=== PATIENT | female | born 1965 | race Caucasian/White ===

== ENCOUNTER 2016-10-05 08:10 | Inpatient (IN) | payer MEDICAID ==
[~2016-10-05] VITALS: Ht 157.5 cm; Wt 95.3 kg
--- NOTE | 2016-10-05 08:39 | PHYS DOC ---
Past Medical History Additional Past Medical Histor: back lower back pain, Past Surgical History: Tonsillectomy, Tubal ligation, Other Additional Past Surgical Histo: uterine ablation, thyroidectomy Drug Use: None Adult General Chief Complaint Chief Complaint: LOWER BACK PAIN OR INJURY [facility] HPI He is a pleasant 51-year-old female with history of chronic neck pain secondary to chronic bulging disc and C6-C7 and chronic lower back pain that acutely worse over the last 24 hours. 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 She is at a truck stop earlier today when attempting to get out of the truck to go the restroom and felt increasing pain in her lower back. She has no numbness and tingling to her groin has had some urinary incontinence is gotten progressively worse over last several weeks. She denies any weakness in her legs, bowel incontinence, fevers, chills, UTI symptoms, vaginal bleeding or discharge, night sweats, weight loss, fevers or chills, vomiting, diarrhea or other symptoms. She said normally she is takes Aleve for her symptoms but since she is in so much pain even taking Aleve has not relieved her symptoms. She denies any fall or remembers any specific movement that may be exacerbated her symptoms. She unfortunately is here by herself traveling to the state and has no one that can take her home. Review of Systems Review of Systems Constitutional: Denies fever or chills [] Eyes: Denies change in visual acuity, redness, or eye pain [] HENT: Denies nasal congestion or sore throat [] Respiratory: Denies cough or shortness of breath [] Cardiovascular: No additional information not addressed in HPI [] GI: Denies abdominal pain, nausea, vomiting, bloody stools or diarrhea [] : Denies dysuria or hematuria he does complain of some urinary incontinence. Musculoskeletal: Planes of chronic neck pain and back pain. Integument: Denies rash or skin lesions [] Neurologic: Denies headache, focal weakness or sensory changes [] Endocrine: Denies polyuria or polydipsia [] Current Medications Current Medications Current Medications Medications (Trade) Dose Ordered Sig/Hilton Start Time Stop Time Status Last Admin Dose Admin Acetaminophen (Tylenol) 650 mg PRN Q4HRS PRN 10/05/16 11:30 10/06/16 11:29 Diazepam (Valium) 5 mg 1X ONCE 10/05/16 09:00 10/05/16 09:01 DC 10/05/16 08:50 5 MG Hydromorphone HCl (Dilaudid) 1 mg PRN Q15MIN PRN 10/05/16 08:30 10/06/16 08:29 10/05/16 11:30 1 MG Ketorolac Tromethamine (Toradol) 30 mg 1X ONCE 10/05/16 09:00 10/05/16 09:01 DC 10/05/16 08:49 30 MG Morphine Sulfate 4 mg PRN Q2HR PRN 10/05/16 11:30 10/06/16 11:29 Ondansetron HCl (Zofran) 4 mg PRN Q8HRS PRN 10/05/16 11:30 10/06/16 11:29 Sodium Chloride 1,000 ml @ 125 mls/hr Q8H 10/05/16 11:18 10/06/16 11:17 Sodium Chloride (Normal Saline Flush) 10 ml QSHIFT PRN 10/05/16 08:30 10/05/16 08:52 10 ML Allergies Allergies Allergies Coded Allergies Type Severity Reaction Last Updated Verified Cephalosporins Allergy Intermediate hives 10/05/16 Yes bee venom protein (honey bee) Allergy Unknown swelling 10/05/16 Yes egg Allergy Unknown hives 10/05/16 Yes Physical Exam Physical Exam Constitutional: Well developed, well nourished, is crying and very uncomfortable. Resting with her legs at 30 HENT: Normocephalic, atraumatic, bilateral external ears normal, oropharynx moist, no oral exudates, nose normal. [] Eyes: PERRLA, EOMI, conjunctiva normal, no discharge. [] Neck: Normal range of motion, no tenderness, supple, no stridor. [] Cardiovascular:Heart rate regular rhythm, no murmur [] Lungs & Thorax: Bilateral breath sounds clear to auscultation [] Abdomen: Bowel sounds normal, soft, no tenderness, no masses, no pulsatile masses. [] Skin: Warm, dry, no erythema, no rash. [] Back: Exhibits significant tenderness lumbar spine. Extremities: No tenderness, no cyanosis, no clubbing, ROM intact, no edema. [] Neurologic: Alert and oriented X 3, normal motor function, normal sensory function, no focal deficits noted. Patient has negative straight leg raise at 40 each leg bilaterally. Patient has normal sensation to light touch and appropriate production stage manager over the lower dermatomes of the legs. Psychologic: Very anxious but judgment is normal Current Patient Data Vital Signs Vital Signs Date Time Temp Pulse Resp B/P (MAP) Pulse Ox O2 Delivery O2 Flow Rate FiO2 10/05/16 11:30 15 97 Room Air 10/05/16 08:10 97.9 77 132/68 (89) 97.9 Lab Values Laboratory Tests Test 10/05/16 08:37 10/05/16 09:50 White Blood Count 9.3 x10^3/uL (4.0-11.0) Red Blood Count 4.60 x10^6/uL (3.50-5.40) Hemoglobin 13.4 g/dL (12.0-15.5) Hematocrit 40.3 % (36.0-47.0) Mean Corpuscular Volume 88 fL (79-100) Mean Corpuscular Hemoglobin 29 pg (25-35) Mean Corpuscular Hemoglobin Concent 33 g/dL (31-37) Red Cell Distribution Width 14.2 % (11.5-14.5) Platelet Count 325 x10^3/uL (140-400) Neutrophils (%) (Auto) 45 % (31-73) Lymphocytes (%) (Auto) 45 % (24-48) Monocytes (%) (Auto) 5 % (0-9) Eosinophils (%) (Auto) 5 % (0-3) H Basophils (%) (Auto) 1 % (0-3) Neutrophils # (Auto) 4.1 x10^3uL (1.8-7.7) Lymphocytes # (Auto) 4.2 x10^3/uL (1.0-4.8) Monocytes # (Auto) 0.4 x10^3/uL (0.0-1.1) Eosinophils # (Auto) 0.4 x10^3/uL (0.0-0.7) Basophils # (Auto) 0.1 x10^3/uL (0.0-0.2) Sodium Level 145 mmol/L (136-145) Potassium Level 4.4 mmol/L (3.5-5.1) Chloride Level 107 mmol/L (98-107) Carbon Dioxide Level 26 mmol/L (21-32) Anion Gap 12 (6-14) Blood Urea Nitrogen 12 mg/dL (7-20) Creatinine 0.9 mg/dL (0.6-1.0) Estimated GFR (Cockcroft-Gault) 65.5 Glucose Level 104 mg/dL (70-99) H Calcium Level 8.8 mg/dL (8.5-10.1) Total Bilirubin 0.4 mg/dL (0.2-1.0) Direct Bilirubin 0.1 mg/dL (0.0-0.2) Aspartate Amino Transferase (AST) 51 U/L (15-37) H Alanine Aminotransferase (ALT) 102 U/L (14-59) H Alkaline Phosphatase 83 U/L (46-116) Total Protein 7.3 g/dL (6.4-8.2) Albumin 3.7 g/dL (3.4-5.0) Urine Collection Type Unknown Urine Color Yellow Urine Clarity Clear Urine pH 6.0 Urine Specific [place] 1.020 Urine Protein Negative mg/dL (NEG-TRACE) Urine Glucose (UA) Negative mg/dL (NEG) Urine Ketones (Stick) Negative mg/dL (NEG) Urine Blood Negative (NEG) Urine Nitrite Negative (NEG) Urine Bilirubin Negative (NEG) Urine Urobilinogen Dipstick 0.2 mg/dL (0.2 mg/dL) Urine Leukocyte Esterase Negative (NEG) Urine RBC Rare /HPF (0-2) Urine WBC Occ /HPF (0-4) Urine Squamous Epithelial Cells Few /LPF Urine Bacteria Few /HPF (0-FEW) Urine Mucus Slight /LPF Laboratory Tests 10/05/16 08:37 Laboratory Tests 10/05/16 08:37 EKG EKG [] Radiology/Procedures Radiology/Procedures [] [facility] [address] [place], [place] [id number] IMAGING REPORT Signed PATIENT: ZARINA SORIANO ACCOUNT: [id number] : 1965 LOCATION: ER AGE: 51 SEX: F EXAM STATUS: PRE ER ORD. PHYSICIAN: KRISTA SAMUELS MD REASON: lower back pain with urinary incontinence PROCEDURE: LUMBAR SPINE WO CONTRAST INDICATION: Low back pain and urinary incontinence. TECHNIQUE: Sagittal T1, sagittal T2, sagittal STIR, axial T1, and axial T2 sequences are provided. No comparison is available. FINDINGS: There is no malalignment. There is no marrow edema. There is no worrisome marrow lesion. Vertebral body height is maintained. There is diffuse disc desiccation. Disc height is relatively maintained. A few small Schmorl's nodes are noted. The conus medullaris is normal in signal intensity and in position. Subcutaneous edema is noted. The numbering system assumes 5 lumbar type vertebral bodies. Findings by individual level are as follows: L1-L2: There is a minimal disc bulge without canal or foraminal compromise. L2-L3: There is a minimal disc bulge without canal or foraminal compromise. L3-L4: There is a minimal disc bulge without canal or foraminal compromise. L4-L5: There is a mild disc bulge. There is a central annular fissure. There is facet hypertrophy. There is no canal or foraminal compromise. L5-S1: There is minimal facet hypertrophy without canal or foraminal compromise. What is considered the S1 segment may be partially lumbarized. IMPRESSION: Mild degenerative disc disease in the lumbar spine. There is no high-grade canal or foraminal compromise at any level. Electronically signed by: Rhys Campuzano MD (10/05/2016 10:00 AM) [facility] Course & Med Decision Making Course & Med Decision Making Pertinent Labs and Imaging studies reviewed. (See chart for details) Given the fact that this patient is traveling to the [facility] and her pain is so intractable. I will offer her IV medications for therapy I will complete a evaluation for differential diagnosis to include cauda equina, renal colic from kidney stones, UTI, pyonephritis, a fracture, a tumor, or toxins or possible infection from epidural abscess. She'll be given some fluids antiemetics and pain medications. We will complete a noncontrasted MRI of the lumbar spine. Even her urinary incontinence. Although I do not believe she suffered cauda equina given the fact she has normal sensation and rectal tone and no weakness demonstrated on exam. This urinary incontinence may be from stress incontinence. [] Patient tells me that their symptoms given during CC are improved. Actually 9: 30 AM Impression's MRI of the lumbar spine as been returned with no obvious impingement on the spinal canal. Patient has mild disc bulges but no impingement that would be be causing her to experience cauda equina. Patient's urinalysis is very contaminated with epithelial cells although she did express any dysuria urgency or frequency there is somewhat blood cells bacteria in the but given her epithelial contamination I will not treat this empirically. At this point patient is no fracture, no UTI, no pyonephritis, no epidural abscess , no evidence of cauda equina, and no ruptured aneurysm. Patient tells me that their symptoms given during CC are improved. 11:30 AM. Although the patient's MRI is negative patient is still having intractable pain. 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 We will have pain management see her as well we have her here in her hospital. Dr. DAVIS Quality Control Inspector Heading note: Internal medicine Quality Control Inspector Heading called at of the service paged at 11:31 AM Consult called back at 1:31 AM Discussed the case I presented and they agreed with admission. Time of acceptance 11:31 AM Patient is being admitted to the hospital secondary to intractable pain of her back. Although there is no evidence of organic problem like a localized infection, epidural abscess, cauda equina syndrome, UTI, pyelonephritis patient is traveling from out of state and cannot be released from the ER based on the fact that she still intractable pain requiring narcotics to treat. Patient had discussed treatment modalities and treatment options she is asked to be admitted to the hospital until she make arrangements for transportation back home. I spent approximately 45-50 minutes working and engaged directly in the patient care providing critical care evaluation this includes but not limited to time spent engaged in work directly related to the individual patients care. I spent time at the bedside, reviewing test results, discussing the case with staff, documenting the medical record and time spent with EMS discussing specific treatment issues when the patient presented and during his evaluation. Dragon Disclaimer Dragon Disclaimer This electronic medical record was generated, in whole or in part, using a voice recognition dictation system. Departure Departure Impression: Primary Impression: Intractable back pain Disposition: ADMITTED INPATIENT Admitting Physician: Other Condition: STABLE KRISTA SAMUELS MD Oct 05, 2016 08:38
[2016-10-05 08:46] LABS: BASO # 0.1 x10^3/uL (0.0-0.2); BASO % 1 % (0-3); EOS % 5 % (0-3); HEMATOCRIT 40.3 % (36.0-47.0); HEMOGLOBIN 13.4 g/dL (12.0-15.5); LYMPH # 4.2 x10^3/uL (1.0-4.8); LYMPH % 45 % (24-48); MEAN CORPUSCULAR HEMOGLOBIN 29 pg (25-35); MEAN CORPUSCULAR HGB CONC 33 g/dL (31-37); MEAN CORPUSCULAR VOLUME 88 fL (79-100); MONO % 5 % (0-9); NEUT % 45 % (31-73); PLATELET COUNT 325 x10^3/uL (140-400); RED CELL DISTRIBUTION WIDTH 14.2 % (11.5-14.5); WHITE BLOOD COUNT 9.3 x10^3/uL (4.0-11.0)
[2016-10-05] MEDS: 0.9 % SODIUM CHLORIDE 10 ML DISP.SYRIN. IV PRN ×2 (08:52→13:19)
[2016-10-05 08:55] LABS: CALCIUM 8.8 mg/dL (8.5-10.1); CREATININE 0.9 mg/dL (0.6-1.0); GFR 65.5; POTASSIUM 4.4 mmol/L (3.5-5.1)
[2016-10-05] MEDS ORDERED: IV NORMAL SALINE 1000ML BAG 1,000 ML IV SCH (09:00)
[2016-10-05] MEDS ORDERED: KETOROLAC TROMETHAMINE 30 MG/ML INJ. IV ONE (09:00)
[2016-10-05 09:01] LABS: ALBUMIN 3.7 g/dL (3.4-5.0); DIRECT BILIRUBIN 0.1 mg/dL (0.0-0.2); TOTAL BILIRUBIN 0.4 mg/dL (0.2-1.0); TOTAL PROTEIN 7.3 g/dL (6.4-8.2)
[2016-10-05] MEDS: HYDROmorphone 2 MG/ML VIAL IV/SQ PRN ×2 (09:43→11:30)
[2016-10-05 10:00] LABS: BILIRUBIN,URINE NEGATIVE (NEG); GLUCOSE,URINE NEGATIVE (NEG); NITRITE,URINE NEGATIVE (NEG); PROTEIN,URINE NEGATIVE (NEG-TRACE); UROBILINOGEN,URINE 0.2 mg/dL (0.2 mg/dL)
--- NOTE | 2016-10-05 10:03 | RAD ---
INDICATION: Low back pain and urinary incontinence. TECHNIQUE: Sagittal T1, sagittal T2, sagittal STIR, axial T1, and axial T2 sequences are provided. No comparison is available. FINDINGS: There is no malalignment. There is no marrow edema. There is no worrisome marrow lesion. Vertebral body height is maintained. There is diffuse disc desiccation. Disc height is relatively maintained. A few small Schmorl's nodes are noted. The conus medullaris is normal in signal intensity and in position. Subcutaneous edema is noted. The numbering system assumes 5 lumbar type vertebral bodies. Findings by individual level are as follows: L1-L2: There is a minimal disc bulge without canal or foraminal compromise. L2-L3: There is a minimal disc bulge without canal or foraminal compromise. L3-L4: There is a minimal disc bulge without canal or foraminal compromise. L4-L5: There is a mild disc bulge. There is a central annular fissure. There is facet hypertrophy. There is no canal or foraminal compromise. L5-S1: There is minimal facet hypertrophy without canal or foraminal compromise. What is considered the S1 segment may be partially lumbarized. IMPRESSION: Mild degenerative disc disease in the lumbar spine. There is no high-grade canal or foraminal compromise at any level. Electronically signed by: Rhys Campuzano MD (10/05/2016 10:00 AM) [facility]
[2016-10-05 10:14] LABS: BACTERIA,URINE FEW /HPF (0-FEW); RBC,URINE RARE /HPF (0-2); SQUAMOUS EPITHELIAL CELL,UR FEW /LPF; WBC,URINE OCC /HPF (0-4)
[2016-10-05] MEDS: IV NORMAL SALINE 1000ML BAG 1,000 ML IV SCH ×2 (11:18→21:03)
[2016-10-05] MEDS ORDERED: MORPHINE SULFATE 4 MG/ML DISP.SYRIN. IV PRN (11:30)
[2016-10-05] MEDS ORDERED: ACETAMINOPHEN 325 MG TABLET. PO PRN (11:30)
[2016-10-05] MEDS ORDERED: ONDANSETRON PF 4 MG/2 ML VIAL. IV PRN (11:30)
[2016-10-05 12:40] VITALS: BP 111/69
[2016-10-05] MEDS ORDERED: LEVO100T5 PO (12:41)
[2016-10-05] MEDS ORDERED: CHOL500050 PO (12:41)
[2016-10-05] MEDS ORDERED: LISI10TA2 PO (12:41)
[2016-10-05] MEDS ORDERED: OMEG100021 PO (12:41)
[2016-10-05 15:00] VITALS: BP 122/72
[2016-10-05] MEDS ORDERED: BUTALB/APAP/CAFEIN 50/325/40MG TABLET. PO PRN (17:00)
[2016-10-05] MEDS: methylPREDNISolone 4 MG TABLET. PO SCH ×5 (17:22→21:00)
[2016-10-05] MEDS: PANTOPRAZOLE 40 MG TABLET.DR. PO SCH (17:23)
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
[2016-10-05 19:28] VITALS: BP 112/71
[2016-10-05 23:22] VITALS: BP 109/62
--- NOTE | 2016-10-06 00:06 | ACF ---
Admission Forms Criteria BACK PAIN Clinical Indications for Admission to Inpatient Care ([place]/check or initial the applicable condition/ criteria) Admission is indicated for ANY ONE of the following(1)(2)(3)(4)(5)(6)(7): [ ]I. Cauda equina or conus medullaris syndrome as indicated by ANY ONE of the following(10): [ ]a) Bowel dysfunction [ ]b) Bladder dysfunction [ ]c) Saddle anesthesia [ ]d) Neurologic abnormality suggesting distal spinal cord impingement [ ]II. Progressive or severe neurologic deficit [ ]III. Spine fracture with significant damage or threat of damage to vertebral column or spinal cord [ ]IV. Suspected spinal infection (eg, epidural abscess, vertebral osteomyelitis)(11) [ ]V. Suspected cause that requires inpatient treatment (eg, aortic dissection ) [X]. Inpatient admission required[A] rather than observation care (see Back Pain: Observation Care ISC guideline as appropriate) because of ANYONE of the following(13): [X]a) Severe pain requiring acute inpatient management [ ]b) Immediate inpatient surgery [ ]c) Other condition, treatment, or monitoring requiring inpatient admission Extended stay beyond goal length of stay may be needed for (40)(41): [ ]a) Spinal cord compression from stenosis, disk, or tumor (10)(42) [ ]b) Traumatic or pathologic vertebral fracture (44) [ ]c) Vertebral infection (11) [ ]d) Severe pain that is difficult to control [ ]e) Older patients(65 years or older) [ ]f) Disk disease, spondylosis, or spinal stenosis as etiology of severe pain or functional deficit (without myelopathy) The original [employer] content created by [employer] has been revised. The portions of the content which have been revised are identified through the use of italic text, and [facility] has neither reviewed nor approved the modified material. All other unmodified content is copyright [employer]. Please see references footnoted in the original [facility] [facility] [employer] edition 2015 Admission Criteria Met?: Yes ANA AYON Oct 06, 2016 00:06
[2016-10-06] MEDS: HYDROcodone/APAP 10/325 1 TAB TABLET PO PRN ×3 (02:50→17:17)
[2016-10-06 03:05] VITALS: BP 132/66
[2016-10-06] MEDS: IV NORMAL SALINE 1000ML BAG 1,000 ML IV SCH (05:03)
[2016-10-06 06:26] LABS: ALBUMIN 2.9 g/dL (3.4-5.0); DIRECT BILIRUBIN 0.1 mg/dL (0.0-0.2); TOTAL BILIRUBIN 0.3 mg/dL (0.2-1.0); TOTAL PROTEIN 6.6 g/dL (6.4-8.2)
[2016-10-06 07:00] VITALS: BP 113/71
[2016-10-06] MEDS: LEVOTHYROXINE 100 MCG TABLET PO SCH (07:13)
[2016-10-06] MEDS: PANTOPRAZOLE 40 MG TABLET.DR. PO SCH (09:35)
[2016-10-06] MEDS: LISINOPRIL 10 MG TABLET PO SCH (09:35)
--- NOTE | 2016-10-06 10:55 | PDOC ---
PROGRESS NOTES Subjective Subjective She admits continued low back pain and feels there is something pinching in her back. Objective Objective Vital Signs Date Time Temp Pulse Resp B/P (MAP) Pulse Ox O2 Delivery O2 Flow Rate FiO2 10/06/16 09:38 20 95 Room Air 10/06/16 09:35 64 113/71 10/06/16 07:00 97.3 97.3 Intake and Output 10/06/16 07:00 Intake Total 5095 ml Output Total 400 ml Balance 4695 ml Intake Oral 1720 ml IV Total 1875 ml Other 1500 ml Output Urine Total 400 ml # Voids 6 Physical Exam Physical Exam Despite pain she got up and took shower and she is independent with her mobility and self care.No change noted with her neurological examination and despite no mri scan evidence of new HNP,we are treating just like she had new disc herniation with medrol dose pack. Assessment Assessment Problems Medical Problems: (1) Intractable back pain Status: Acute Plan Plan of Care Physical therapy to see her today and to encourage her to use lumbar corset while up and hopefully she should feel better to go home in the next few days. Comment Review of Relevant I have reviewed the following items estefani (where applicable) has been applied. Labs Laboratory Tests Test 10/05/16 08:37 10/05/16 09:50 10/06/16 05:40 White Blood Count 9.3 x10^3/uL (4.0-11.0) Red Blood Count 4.60 x10^6/uL (3.50-5.40) Hemoglobin 13.4 g/dL (12.0-15.5) Hematocrit 40.3 % (36.0-47.0) Mean Corpuscular Volume 88 fL (79-100) Mean Corpuscular Hemoglobin 29 pg (25-35) Mean Corpuscular Hemoglobin Concent 33 g/dL (31-37) Red Cell Distribution Width 14.2 % (11.5-14.5) Platelet Count 325 x10^3/uL (140-400) Neutrophils (%) (Auto) 45 % (31-73) Lymphocytes (%) (Auto) 45 % (24-48) Monocytes (%) (Auto) 5 % (0-9) Eosinophils (%) (Auto) 5 % (0-3) Basophils (%) (Auto) 1 % (0-3) Neutrophils # (Auto) 4.1 x10^3uL (1.8-7.7) Lymphocytes # (Auto) 4.2 x10^3/uL (1.0-4.8) Monocytes # (Auto) 0.4 x10^3/uL (0.0-1.1) Eosinophils # (Auto) 0.4 x10^3/uL (0.0-0.7) Basophils # (Auto) 0.1 x10^3/uL (0.0-0.2) Sodium Level 145 mmol/L (136-145) Potassium Level 4.4 mmol/L (3.5-5.1) Chloride Level 107 mmol/L (98-107) Carbon Dioxide Level 26 mmol/L (21-32) Anion Gap 12 (6-14) Blood Urea Nitrogen 12 mg/dL (7-20) Creatinine 0.9 mg/dL (0.6-1.0) Estimated GFR (Cockcroft-Gault) 65.5 Glucose Level 104 mg/dL (70-99) Calcium Level 8.8 mg/dL (8.5-10.1) Total Bilirubin 0.4 mg/dL (0.2-1.0) 0.3 mg/dL (0.2-1.0) Direct Bilirubin 0.1 mg/dL (0.0-0.2) 0.1 mg/dL (0.0-0.2) Aspartate Amino Transf (AST/SGOT) 51 U/L (15-37) 48 U/L (15-37) Alanine Aminotransferase (ALT/SGPT) 102 U/L (14-59) 100 U/L (14-59) Alkaline Phosphatase 83 U/L (46-116) 69 U/L (46-116) Total Protein 7.3 g/dL (6.4-8.2) 6.6 g/dL (6.4-8.2) Albumin 3.7 g/dL (3.4-5.0) 2.9 g/dL (3.4-5.0) Urine Collection Type Unknown Urine Color Yellow Urine Clarity Clear Urine pH 6.0 Urine Specific [place] 1.020 Urine Protein Negative mg/dL (NEG-TRACE) Urine Glucose (UA) Negative mg/dL (NEG) Urine Ketones (Stick) Negative mg/dL (NEG) Urine Blood Negative (NEG) Urine Nitrite Negative (NEG) Urine Bilirubin Negative (NEG) Urine Urobilinogen Dipstick 0.2 mg/dL (0.2 mg/dL) Urine Leukocyte Esterase Negative (NEG) Urine RBC Rare /HPF (0-2) Urine WBC Occ /HPF (0-4) Urine Squamous Epithelial Cells Few /LPF Urine Bacteria Few /HPF (0-FEW) Urine Mucus Slight /LPF Laboratory Tests Test 10/06/16 05:40 Total Bilirubin 0.3 mg/dL (0.2-1.0) Direct Bilirubin 0.1 mg/dL (0.0-0.2) Aspartate Amino Transf (AST/SGOT) 48 U/L (15-37) Alanine Aminotransferase (ALT/SGPT) 100 U/L (14-59) Alkaline Phosphatase 69 U/L (46-116) Total Protein 6.6 g/dL (6.4-8.2) Albumin 2.9 g/dL (3.4-5.0) Medications Current Medications Hydromorphone HCl (Dilaudid) 1 mg PRN Q15MIN PRN IV/SQ PAIN GREATER THAN 3/10 Last administered on 10/05/16 11:30; Start 10/05/16 at 08:30; Stop 10/05/16 at 16:55; Status DC Sodium Chloride 1,000 ml @ 1,000 mls/hr Q1H IV Last administered on 10/05/16 08:48; Start 10/05/16 at 09:00; Stop 10/05/16 at 09:59; Status DC Sodium Chloride (Normal Saline Flush) 10 ml QSHIFT PRN IV AFTER MEDS AND BLOOD DRAWS Last administered on 10/05/16 13:19; Start 10/05/16 at 08:30 Diazepam (Valium) 5 mg 1X ONCE IV Last administered on 10/05/16 08:50; Start 10/05/16 at 09:00; Stop 10/05/16 at 09:01; Status DC Ketorolac Tromethamine (Toradol) 30 mg 1X ONCE IV Last administered on 08:49; Start 10/05/16 at 09:00; Stop 10/05/16 at 09:01; Status DC Ondansetron HCl (Zofran) 4 mg PRN Q8HRS PRN IV NAUSEA/VOMITING; Start 10/05/16 at 11:30; Stop 10/06/16 at 11:29 Morphine Sulfate 4 mg PRN Q2HR PRN IV PAIN; Start 10/05/16 at 11:30; Stop 10/05 at 16:55; Status DC Sodium Chloride 1,000 ml @ 125 mls/hr Q8H IV Last administered on 10/06/16 05 :03; Start 10/05/16 at 11:18; Stop 10/06/16 at 11:17 Acetaminophen (Tylenol) 650 mg PRN Q4HRS PRN PO FEVER; Start 10/05/16 at 11:30 ; Stop 10/06/16 at 11:29 Levothyroxine Sodium (Synthroid) 100 mcg DAILY07 PO Last administered on 07:13; Start 10/06/16 at 07:00 Lisinopril (Prinivil) 10 mg DAILY PO Last administered on 10/06/16 09:35; Start 10/06/16 at 09:00 Acetaminophen/ Hydrocodone Bitart (Lortab 10/325) 1 tab PRN Q6HRS PRN PO PAIN Last administered on 10/06/16 09:38; Start 10/05/16 at 17:00 Pantoprazole Sodium (Protonix) 40 mg DAILYAC PO Last administered on 10/06/16 09:35; Start 10/05/16 at 18:00 Cyclobenzaprine HCl (Flexeril) 10 mg PRN Q6HRS PRN PO MUSCLE SPASMS; Start at 17:00 Methylprednisolone (Medrol) 8 mg BID PO Last administered on 10/05/16 21:00; Start 10/05/16 at 18:00; Stop 10/05/16 at 21:01; Status DC Methylprednisolone (Medrol) 4 mg BIDPCLD PO Last administered on 10/05/16 17: 23; Start 10/05/16 at 12:30; Stop 10/05/16 at 17:31; Status DC Methylprednisolone (Medrol) 4 mg TIDPC PO Last administered on 10/05/16 17:23 ; Start 10/06/16 at 08:30; Stop 10/06/16 at 17:31 Methylprednisolone (Medrol) 8 mg QHS PO ; Start 10/06/16 at 21:00; Stop at 21:01 Methylprednisolone (Medrol) 4 mg QIDAFTMEAL PO ; Start 10/07/16 at 09:00; Stop 10/07/16 at 21:01 Methylprednisolone (Medrol) 4 mg TID PO ; Start 10/08/16 at 09:00; Stop at 21:01 Methylprednisolone (Medrol) 4 mg BID PO ; Start 10/09/16 at 09:00; Stop at 21:01 Methylprednisolone (Medrol) 4 mg DAILY PO ; Start 10/10/16 at 09:00; Stop at 09:01 Lidocaine (Lidoderm) 1 patch DAILY TD ; Start 10/06/16 at 09:00 Acetaminophen/ Butalbital/ Caffeine (Fioricet) 2 tab PRN Q6HRS PRN PO MIGRAINE HEADACHE; Start 10/05/16 at 17:00 Active Scripts Active Reported Fish Oil 1,000 mg Softgel ([place]-3/Dha/Epa/Fish Oil) 1,000 Mg Capsule 1,000 Mg PO Vitamin D (Cholecalciferol (Vitamin D3)) 50,000 Unit Capsule 50,000 Unit PO WEEKLY Levothyroxine Sodium 100 Mcg Tablet 1 Tab PO DAILY Lisinopril 10 Mg Tablet 1 Tab PO DAILY Vitals/I & O Vital Sign - Last 24 Hours 10/05/16 10/05/16 10/05/16 10/05/16 11:00 11:30 11:30 12:40 Temp 97.0 97.0 Pulse 72 58 80 Resp 15 15 15 20 B/P (MAP) 109/55 (73) 107/59 (75) 111/69 (83) Pulse Ox 90 97 96 98 O2 Delivery Room Air Room Air Room Air Room Air 10/05/16 10/05/16 10/05/16 10/05/16 13:19 15:00 19:28 20:10 Temp 98.2 97.5 98.2 97.5 Pulse 72 61 Resp 22 18 B/P (MAP) 122/72 (89) 112/71 (85) Pulse Ox 98 97 95 O2 Delivery Room Air Room Air Room Air 10/05/16 10/06/16 10/06/16 10/06/16 23:22 02:50 03:05 03:50 Temp 97.7 97.7 97.7 97.7 Pulse 62 68 Resp 16 20 16 20 B/P (MAP) 109/62 (78) 132/66 (88) Pulse Ox 95 95 O2 Delivery Room Air Room Air Room Air Room Air 10/06/16 10/06/16 10/06/16 07:00 09:35 09:38 Temp 97.3 97.3 Pulse 64 64 Resp 20 20 B/P (MAP) 113/71 (85) 113/71 Pulse Ox 98 95 O2 Delivery Room Air Room Air Intake and Output 10/05/16 10/05/16 10/06/16 15:00 23:00 07:00 Intake Total 1360 ml 720 ml 3015 ml Output Total 400 ml Balance 1360 ml 320 ml 3015 ml OPAL DAVIS MD Oct 06, 2016 10:55
[2016-10-06] MEDS: LIDOCAINE (700MG/PATCH) PATCH. TD SCH (10:57)
[2016-10-06] MEDS: CYCLOBENZAPRINE 10 MG TABLET. PO PRN ×2 (10:57→17:18)
[2016-10-06 11:00] VITALS: BP 128/82
[2016-10-06] MEDS: methylPREDNISolone 4 MG TABLET. PO SCH ×2 (12:25→17:17)
--- NOTE | 2016-10-06 12:35 | PDOC ---
PROGRESS NOTES Chief Complaint Chief Complaint severe back pain disk bulge and strain unable to walk much obesity, BMI 38 History of Present Illness History of Present Illness hasnt had back brace on needs pt and ot Vitals Vitals Vital Signs Date Time Temp Pulse Resp B/P (MAP) Pulse Ox O2 Delivery O2 Flow Rate FiO2 10/06/16 10:38 20 95 Room Air 10/06/16 09:35 64 113/71 10/06/16 07:00 97.3 97.3 Physical Exam General: Alert, Cooperative, No acute distress Heart: Regular rate, No murmurs Lungs: Clear, Wheezing Abdomen: Normal bowel sounds Extremities: No clubbing, No cyanosis Skin: No rashes, No breakdown Labs LABS Laboratory Tests Test 10/06/16 05:40 Total Bilirubin 0.3 mg/dL (0.2-1.0) Direct Bilirubin 0.1 mg/dL (0.0-0.2) Aspartate Amino Transf (AST/SGOT) 48 U/L (15-37) Alanine Aminotransferase (ALT/SGPT) 100 U/L (14-59) Alkaline Phosphatase 69 U/L (46-116) Total Protein 6.6 g/dL (6.4-8.2) Albumin 2.9 g/dL (3.4-5.0) Review of Systems Review of Systems no n.v.d back pain with some trouble walking, Assessment and Plan Assessmemt and Plan Problems Medical Problems: (1) Intractable back pain Status: Acute Problems: Comment Review of Relevant I have reviewed the following items estefani (where applicable) has been applied. Labs Laboratory Tests Test 10/05/16 08:37 10/05/16 09:50 10/06/16 05:40 White Blood Count 9.3 x10^3/uL (4.0-11.0) Red Blood Count 4.60 x10^6/uL (3.50-5.40) Hemoglobin 13.4 g/dL (12.0-15.5) Hematocrit 40.3 % (36.0-47.0) Mean Corpuscular Volume 88 fL (79-100) Mean Corpuscular Hemoglobin 29 pg (25-35) Mean Corpuscular Hemoglobin Concent 33 g/dL (31-37) Red Cell Distribution Width 14.2 % (11.5-14.5) Platelet Count 325 x10^3/uL (140-400) Neutrophils (%) (Auto) 45 % (31-73) Lymphocytes (%) (Auto) 45 % (24-48) Monocytes (%) (Auto) 5 % (0-9) Eosinophils (%) (Auto) 5 % (0-3) Basophils (%) (Auto) 1 % (0-3) Neutrophils # (Auto) 4.1 x10^3uL (1.8-7.7) Lymphocytes # (Auto) 4.2 x10^3/uL (1.0-4.8) Monocytes # (Auto) 0.4 x10^3/uL (0.0-1.1) Eosinophils # (Auto) 0.4 x10^3/uL (0.0-0.7) Basophils # (Auto) 0.1 x10^3/uL (0.0-0.2) Sodium Level 145 mmol/L (136-145) Potassium Level 4.4 mmol/L (3.5-5.1) Chloride Level 107 mmol/L (98-107) Carbon Dioxide Level 26 mmol/L (21-32) Anion Gap 12 (6-14) Blood Urea Nitrogen 12 mg/dL (7-20) Creatinine 0.9 mg/dL (0.6-1.0) Estimated GFR (Cockcroft-Gault) 65.5 Glucose Level 104 mg/dL (70-99) Calcium Level 8.8 mg/dL (8.5-10.1) Total Bilirubin 0.4 mg/dL (0.2-1.0) 0.3 mg/dL (0.2-1.0) Direct Bilirubin 0.1 mg/dL (0.0-0.2) 0.1 mg/dL (0.0-0.2) Aspartate Amino Transf (AST/SGOT) 51 U/L (15-37) 48 U/L (15-37) Alanine Aminotransferase (ALT/SGPT) 102 U/L (14-59) 100 U/L (14-59) Alkaline Phosphatase 83 U/L (46-116) 69 U/L (46-116) Total Protein 7.3 g/dL (6.4-8.2) 6.6 g/dL (6.4-8.2) Albumin 3.7 g/dL (3.4-5.0) 2.9 g/dL (3.4-5.0) Urine Collection Type Unknown Urine Color Yellow Urine Clarity Clear Urine pH 6.0 Urine Specific [place] 1.020 Urine Protein Negative mg/dL (NEG-TRACE) Urine Glucose (UA) Negative mg/dL (NEG) Urine Ketones (Stick) Negative mg/dL (NEG) Urine Blood Negative (NEG) Urine Nitrite Negative (NEG) Urine Bilirubin Negative (NEG) Urine Urobilinogen Dipstick 0.2 mg/dL (0.2 mg/dL) Urine Leukocyte Esterase Negative (NEG) Urine RBC Rare /HPF (0-2) Urine WBC Occ /HPF (0-4) Urine Squamous Epithelial Cells Few /LPF Urine Bacteria Few /HPF (0-FEW) Urine Mucus Slight /LPF Laboratory Tests Test 10/06/16 05:40 Total Bilirubin 0.3 mg/dL (0.2-1.0) Direct Bilirubin 0.1 mg/dL (0.0-0.2) Aspartate Amino Transf (AST/SGOT) 48 U/L (15-37) Alanine Aminotransferase (ALT/SGPT) 100 U/L (14-59) Alkaline Phosphatase 69 U/L (46-116) Total Protein 6.6 g/dL (6.4-8.2) Albumin 2.9 g/dL (3.4-5.0) Medications Current Medications Hydromorphone HCl (Dilaudid) 1 mg PRN Q15MIN PRN IV/SQ PAIN GREATER THAN 3/10 Last administered on 10/05/16 11:30; Start 10/05/16 at 08:30; Stop 10/05/16 at 16:55; Status DC Sodium Chloride 1,000 ml @ 1,000 mls/hr Q1H IV Last administered on 10/05/16 08:48; Start 10/05/16 at 09:00; Stop 10/05/16 at 09:59; Status DC Sodium Chloride (Normal Saline Flush) 10 ml QSHIFT PRN IV AFTER MEDS AND BLOOD DRAWS Last administered on 10/05/16 13:19; Start 10/05/16 at 08:30 Diazepam (Valium) 5 mg 1X ONCE IV Last administered on 10/05/16 08:50; Start 10/05/16 at 09:00; Stop 10/05/16 at 09:01; Status DC Ketorolac Tromethamine (Toradol) 30 mg 1X ONCE IV Last administered on 08:49; Start 10/05/16 at 09:00; Stop 10/05/16 at 09:01; Status DC Ondansetron HCl (Zofran) 4 mg PRN Q8HRS PRN IV NAUSEA/VOMITING; Start 10/05/16 at 11:30; Stop 10/06/16 at 11:29; Status DC Morphine Sulfate 4 mg PRN Q2HR PRN IV PAIN; Start 10/05/16 at 11:30; Stop 10/05 at 16:55; Status DC Sodium Chloride 1,000 ml @ 125 mls/hr Q8H IV Last administered on 10/06/16 05 :03; Start 10/05/16 at 11:18; Stop 10/06/16 at 11:17; Status DC Acetaminophen (Tylenol) 650 mg PRN Q4HRS PRN PO FEVER; Start 10/05/16 at 11:30 ; Stop 10/06/16 at 11:29; Status DC Levothyroxine Sodium (Synthroid) 100 mcg DAILY07 PO Last administered on 07:13; Start 10/06/16 at 07:00 Lisinopril (Prinivil) 10 mg DAILY PO Last administered on 10/06/16 09:35; Start 10/06/16 at 09:00 Acetaminophen/ Hydrocodone Bitart (Lortab 10/325) 1 tab PRN Q6HRS PRN PO PAIN Last administered on 10/06/16 09:38; Start 10/05/16 at 17:00 Pantoprazole Sodium (Protonix) 40 mg DAILYAC PO Last administered on 10/06/16 09:35; Start 10/05/16 at 18:00 Cyclobenzaprine HCl (Flexeril) 10 mg PRN Q6HRS PRN PO MUSCLE SPASMS Last administered on 10/06/16 10:57; Start 10/05/16 at 17:00 Methylprednisolone (Medrol) 8 mg BID PO Last administered on 10/05/16 21:00; Start 10/05/16 at 18:00; Stop 10/05/16 at 21:01; Status DC Methylprednisolone (Medrol) 4 mg BIDPCLD PO Last administered on 10/05/16 17: 23; Start 10/05/16 at 12:30; Stop 10/05/16 at 17:31; Status DC Methylprednisolone (Medrol) 4 mg TIDPC PO Last administered on 10/06/16 12:25 ; Start 10/06/16 at 08:30; Stop 10/06/16 at 17:31 Methylprednisolone (Medrol) 8 mg QHS PO ; Start 10/06/16 at 21:00; Stop at 21:01 Methylprednisolone (Medrol) 4 mg QIDAFTMEAL PO ; Start 10/07/16 at 09:00; Stop 10/07/16 at 21:01 Methylprednisolone (Medrol) 4 mg TID PO ; Start 10/08/16 at 09:00; Stop at 21:01 Methylprednisolone (Medrol) 4 mg BID PO ; Start 10/09/16 at 09:00; Stop at 21:01 Methylprednisolone (Medrol) 4 mg DAILY PO ; Start 10/10/16 at 09:00; Stop at 09:01 Lidocaine (Lidoderm) 1 patch DAILY TD Last administered on 10/06/16 10:57; Start 10/06/16 at 09:00 Acetaminophen/ Butalbital/ Caffeine (Fioricet) 2 tab PRN Q6HRS PRN PO MIGRAINE HEADACHE; Start 10/05/16 at 17:00 Active Scripts Active Reported Fish Oil 1,000 mg Softgel ([place]-3/Dha/Epa/Fish Oil) 1,000 Mg Capsule 1,000 Mg PO Vitamin D (Cholecalciferol (Vitamin D3)) 50,000 Unit Capsule 50,000 Unit PO WEEKLY Levothyroxine Sodium 100 Mcg Tablet 1 Tab PO DAILY Lisinopril 10 Mg Tablet 1 Tab PO DAILY Vitals/I & O Vital Sign - Last 24 Hours 10/05/16 10/05/16 10/05/16 10/05/16 12:40 13:19 15:00 19:28 Temp 97.0 98.2 97.5 97.0 98.2 97.5 Pulse 80 72 61 Resp 20 22 18 B/P (MAP) 111/69 (83) 122/72 (89) 112/71 (85) Pulse Ox 98 98 97 95 O2 Delivery Room Air Room Air Room Air 10/05/16 10/05/16 10/06/16 10/06/16 20:10 23:22 02:50 03:05 Temp 97.7 97.7 97.7 97.7 Pulse 62 68 Resp 16 20 16 B/P (MAP) 109/62 (78) 132/66 (88) Pulse Ox 95 95 O2 Delivery Room Air Room Air Room Air Room Air 10/06/16 10/06/16 10/06/16 10/06/16 07:00 09:35 09:38 10:38 Temp 97.3 97.3 Pulse 64 64 Resp 20 20 20 B/P (MAP) 113/71 (85) 113/71 Pulse Ox 98 95 95 O2 Delivery Room Air Room Air Room Air Intake and Output 10/05/16 10/05/16 10/06/16 15:00 23:00 07:00 Intake Total 1360 ml 720 ml 3015 ml Output Total 400 ml Balance 1360 ml 320 ml 3015 ml ALAN SOMMERS MD Oct 06, 2016 12:34
[2016-10-06 15:00] VITALS: BP 136/70
[2016-10-06 19:00] VITALS: BP 103/55
[2016-10-06] MEDS ORDERED: methylPREDNISolone 4 MG TABLET. PO SCH (21:00)
[2016-10-06 23:00] VITALS: BP 120/59
[2016-10-07 03:00] VITALS: BP 120/56
[2016-10-07 07:00] VITALS: BP 164/87
[2016-10-07] MEDS: methylPREDNISolone 4 MG TABLET. PO SCH ×4 (08:15→20:31)
[2016-10-07] MEDS: LIDOCAINE (700MG/PATCH) PATCH. TD SCH (08:16)
[2016-10-07] MEDS: LISINOPRIL 10 MG TABLET PO SCH (08:16)
[2016-10-07] MEDS: PANTOPRAZOLE 40 MG TABLET.DR. PO SCH (08:16)
[2016-10-07] MEDS: LEVOTHYROXINE 100 MCG TABLET PO SCH (08:16)
[2016-10-07] MEDS: HYDROcodone/APAP 10/325 1 TAB TABLET PO PRN ×2 (10:03→20:29)
[2016-10-07] MEDS: CYCLOBENZAPRINE 10 MG TABLET. PO PRN ×2 (10:03→20:29)
[2016-10-07 11:58] VITALS: BP 139/70
[2016-10-07] MEDS ORDERED: MAGNESIUM HYDROXIDE 2,400 MG/30 ML ORAL.SUSP. PO PRN (14:00)
--- NOTE | 2016-10-07 14:00 | PDOC ---
PROGRESS NOTES Chief Complaint Chief Complaint severe back pain disk bulge and strain unable to walk much obesity, BMI 38 History of Present Illness History of Present Illness she reports no improvement iwth current, back brace did not improve, PT and OT is not helpgin, some relief with pain meds only will consult Neurosurg to [facility], disk bulge seems moderate needs pt and ot Vitals Vitals Vital Signs Date Time Temp Pulse Resp B/P (MAP) Pulse Ox O2 Delivery O2 Flow Rate FiO2 10/07/16 11:58 99.0 65 18 139/70 (93) 95 Room Air 99.0 Physical Exam General: Alert, Cooperative, No acute distress Heart: Regular rate, No murmurs Lungs: Clear, Wheezing Abdomen: Normal bowel sounds Extremities: No clubbing, No cyanosis Skin: No rashes, No breakdown Review of Systems Review of Systems back pain no stool Assessment and Plan Assessmemt and Plan Problems Medical Problems: (1) Intractable back pain Status: Acute Problems: Comment Review of Relevant I have reviewed the following items estefani (where applicable) has been applied. Labs Laboratory Tests Test 10/06/16 05:40 Total Bilirubin 0.3 mg/dL (0.2-1.0) Direct Bilirubin 0.1 mg/dL (0.0-0.2) Aspartate Amino Transf (AST/SGOT) 48 U/L (15-37) Alanine Aminotransferase (ALT/SGPT) 100 U/L (14-59) Alkaline Phosphatase 69 U/L (46-116) Total Protein 6.6 g/dL (6.4-8.2) Albumin 2.9 g/dL (3.4-5.0) Medications Current Medications Hydromorphone HCl (Dilaudid) 1 mg PRN Q15MIN PRN IV/SQ PAIN GREATER THAN 3/10 Last administered on 10/05/16 11:30; Start 10/05/16 at 08:30; Stop 10/05/16 at 16:55; Status DC Sodium Chloride 1,000 ml @ 1,000 mls/hr Q1H IV Last administered on 10/05/16 08:48; Start 10/05/16 at 09:00; Stop 10/05/16 at 09:59; Status DC Sodium Chloride (Normal Saline Flush) 10 ml QSHIFT PRN IV AFTER MEDS AND BLOOD DRAWS Last administered on 10/05/16 13:19; Start 10/05/16 at 08:30 Diazepam (Valium) 5 mg 1X ONCE IV Last administered on 10/05/16 08:50; Start 10/05/16 at 09:00; Stop 10/05/16 at 09:01; Status DC Ketorolac Tromethamine (Toradol) 30 mg 1X ONCE IV Last administered on 08:49; Start 10/05/16 at 09:00; Stop 10/05/16 at 09:01; Status DC Ondansetron HCl (Zofran) 4 mg PRN Q8HRS PRN IV NAUSEA/VOMITING; Start 10/05/16 at 11:30; Stop 10/06/16 at 11:29; Status DC Morphine Sulfate 4 mg PRN Q2HR PRN IV PAIN; Start 10/05/16 at 11:30; Stop 10/05 at 16:55; Status DC Sodium Chloride 1,000 ml @ 125 mls/hr Q8H IV Last administered on 10/06/16 05 :03; Start 10/05/16 at 11:18; Stop 10/06/16 at 11:17; Status DC Acetaminophen (Tylenol) 650 mg PRN Q4HRS PRN PO FEVER; Start 10/05/16 at 11:30 ; Stop 10/06/16 at 11:29; Status DC Levothyroxine Sodium (Synthroid) 100 mcg DAILY07 PO Last administered on 08:16; Start 10/06/16 at 07:00 Lisinopril (Prinivil) 10 mg DAILY PO Last administered on 10/07/16 08:16; Start 10/06/16 at 09:00 Acetaminophen/ Hydrocodone Bitart (Lortab 10/325) 1 tab PRN Q6HRS PRN PO PAIN Last administered on 10/07/16 10:03; Start 10/05/16 at 17:00 Pantoprazole Sodium (Protonix) 40 mg DAILYAC PO Last administered on 10/07/16 08:16; Start 10/05/16 at 18:00 Cyclobenzaprine HCl (Flexeril) 10 mg PRN Q6HRS PRN PO MUSCLE SPASMS Last administered on 10/07/16 10:03; Start 10/05/16 at 17:00 Methylprednisolone (Medrol) 8 mg BID PO Last administered on 10/05/16 21:00; Start 10/05/16 at 18:00; Stop 10/05/16 at 21:01; Status DC Methylprednisolone (Medrol) 4 mg BIDPCLD PO Last administered on 10/05/16 17: 23; Start 10/05/16 at 12:30; Stop 10/05/16 at 17:31; Status DC Methylprednisolone (Medrol) 4 mg TIDPC PO Last administered on 10/06/16 17:17 ; Start 10/06/16 at 08:30; Stop 10/06/16 at 17:31; Status DC Methylprednisolone (Medrol) 8 mg QHS PO Last administered on 10/06/16 20:38; Start 10/06/16 at 21:00; Stop 10/06/16 at 21:01; Status DC Methylprednisolone (Medrol) 4 mg QIDAFTMEAL PO Last administered on 10/07/16 12:06; Start 10/07/16 at 09:00; Stop 10/07/16 at 21:01 Methylprednisolone (Medrol) 4 mg TID PO ; Start 10/08/16 at 09:00; Stop at 21:01 Methylprednisolone (Medrol) 4 mg BID PO ; Start 10/09/16 at 09:00; Stop at 21:01 Methylprednisolone (Medrol) 4 mg DAILY PO ; Start 10/10/16 at 09:00; Stop at 09:01 Lidocaine (Lidoderm) 1 patch DAILY TD Last administered on 10/07/16 08:16; Start 10/06/16 at 09:00 Acetaminophen/ Butalbital/ Caffeine (Fioricet) 2 tab PRN Q6HRS PRN PO MIGRAINE HEADACHE; Start 10/05/16 at 17:00 Active Scripts Active Reported Fish Oil 1,000 mg Softgel ([place]-3/Dha/Epa/Fish Oil) 1,000 Mg Capsule 1,000 Mg PO Vitamin D (Cholecalciferol (Vitamin D3)) 50,000 Unit Capsule 50,000 Unit PO WEEKLY Levothyroxine Sodium 100 Mcg Tablet 1 Tab PO DAILY Lisinopril 10 Mg Tablet 1 Tab PO DAILY Vitals/I & O Vital Sign - Last 24 Hours 10/06/16 10/06/16 10/06/16/19/17 15:00 17:17 18:17 19:00 Temp 97.9 98.1 97.9 98.1 Pulse 88 58 Resp 22 20 20 18 B/P (MAP) 136/70 (92) 103/55 (71) Pulse Ox 97 97 94 O2 Delivery Room Air Room Air 10/06/16 10/06/16 10/07/16 10/07/16 20:00 23:00 03:00 07:00 Temp 97.9 97.7 98.1 97.9 97.7 98.1 Pulse 62 58 60 Resp 18 18 18 B/P (MAP) 120/59 (79) 120/56 (77) 164/87 (112) Pulse Ox 96 94 95 O2 Delivery Room Air Room Air Room Air Room Air 10/07/16 10/07/16 10/07/16 10/07/16 08:00 08:16 10:03 11:03 Pulse 60 B/P (MAP) 164/87 Pulse Ox 95 95 O2 Delivery Room Air Room Air Room Air 10/07/16 11:58 Temp 99.0 99.0 Pulse 65 Resp 18 B/P (MAP) 139/70 (93) Pulse Ox 95 O2 Delivery Room Air Intake and Output 10/06/16 10/06/16 10/07/16 15:00 23:00 07:00 Intake Total 580 ml 850 ml 100 ml Output Total 900 ml Balance 580 ml -50 ml 100 ml ALAN SOMMERS MD Oct 07, 2016 13:59
[2016-10-07] MEDS ORDERED: POLYETHYLENE GLYCOL 3350 17 GM PACKET. PO ONE (14:30)
[2016-10-07] MEDS: DOCUSATE SODIUM 100 MG CAPSULE. PO SCH (14:50)
[2016-10-07 15:00] VITALS: BP 127/69
[2016-10-07 19:47] VITALS: BP 124/72
[2016-10-07 22:52] VITALS: BP 146/69
[2016-10-08 03:00] VITALS: BP 174/95
[2016-10-08] MEDS: LEVOTHYROXINE 100 MCG TABLET PO SCH (06:41)
[2016-10-08 07:00] VITALS: BP 178/94
[2016-10-08] MEDS: LISINOPRIL 10 MG TABLET PO SCH (08:26)
[2016-10-08] MEDS: DOCUSATE SODIUM 100 MG CAPSULE. PO SCH ×3 (08:26→21:35)
[2016-10-08] MEDS: methylPREDNISolone 4 MG TABLET. PO SCH ×3 (08:26→21:35)
[2016-10-08] MEDS: PANTOPRAZOLE 40 MG TABLET.DR. PO SCH (08:27)
[2016-10-08] MEDS: CYCLOBENZAPRINE 10 MG TABLET. PO PRN (08:32)
[2016-10-08] MEDS: HYDROcodone/APAP 10/325 1 TAB TABLET PO PRN (08:32)
[2016-10-08] MEDS: POLYETHYLENE GLYCOL 3350 17 GM PACKET. PO SCH (08:33)
[2016-10-08] MEDS: LIDOCAINE (700MG/PATCH) PATCH. TD SCH ×2 (08:34→09:00)
--- NOTE | 2016-10-08 10:10 | PDOC ---
PROGRESS NOTES Subjective Subjective She admits continued low back pain. Objective Objective Vital Signs Date Time Temp Pulse Resp B/P (MAP) Pulse Ox O2 Delivery O2 Flow Rate FiO2 10/08/16 09:35 96 Room Air 10/08/16 08:26 64 174/95 10/08/16 07:00 98.8 18 98.8 Intake and Output 10/08/16 07:00 Intake Total 0 ml Output Total 2 ml Balance -2 ml Intake Oral 0 ml Output Urine Total 2 ml # Voids 3 Physical Exam Physical Exam She had lumbar corset on loosely around lower thoracic area and she is not using proper body mechanics during mobility but remains independent with mobility and self care and no change with his neurological examination. Assessment Assessment Problems Medical Problems: (1) Intractable back pain Status: Acute Plan Plan of [facility] with out patient follow up when her family can take her home. Comment Review of Relevant I have reviewed the following items estefani (where applicable) has been applied. Medications Current Medications Hydromorphone HCl (Dilaudid) 1 mg PRN Q15MIN PRN IV/SQ PAIN GREATER THAN 3/10 Last administered on 10/05/16 11:30; Start 10/05/16 at 08:30; Stop 10/05/16 at 16:55; Status DC Sodium Chloride 1,000 ml @ 1,000 mls/hr Q1H IV Last administered on 10/05/16 08:48; Start 10/05/16 at 09:00; Stop 10/05/16 at 09:59; Status DC Sodium Chloride (Normal Saline Flush) 10 ml QSHIFT PRN IV AFTER MEDS AND BLOOD DRAWS Last administered on 10/05/16 13:19; Start 10/05/16 at 08:30 Diazepam (Valium) 5 mg 1X ONCE IV Last administered on 10/05/16 08:50; Start 10/05/16 at 09:00; Stop 10/05/16 at 09:01; Status DC Ketorolac Tromethamine (Toradol) 30 mg 1X ONCE IV Last administered on 08:49; Start 10/05/16 at 09:00; Stop 10/05/16 at 09:01; Status DC Ondansetron HCl (Zofran) 4 mg PRN Q8HRS PRN IV NAUSEA/VOMITING; Start 10/05/16 at 11:30; Stop 10/06/16 at 11:29; Status DC Morphine Sulfate 4 mg PRN Q2HR PRN IV PAIN; Start 10/05/16 at 11:30; Stop 10/05 at 16:55; Status DC Sodium Chloride 1,000 ml @ 125 mls/hr Q8H IV Last administered on 10/06/16 05 :03; Start 10/05/16 at 11:18; Stop 10/06/16 at 11:17; Status DC Acetaminophen (Tylenol) 650 mg PRN Q4HRS PRN PO FEVER; Start 10/05/16 at 11:30 ; Stop 10/06/16 at 11:29; Status DC Levothyroxine Sodium (Synthroid) 100 mcg DAILY07 PO Last administered on 06:41; Start 10/06/16 at 07:00 Lisinopril (Prinivil) 10 mg DAILY PO Last administered on 10/08/16 08:26; Start 10/06/16 at 09:00 Acetaminophen/ Hydrocodone Bitart (Lortab 10/325) 1 tab PRN Q6HRS PRN PO PAIN Last administered on 10/08/16 08:32; Start 10/05/16 at 17:00 Pantoprazole Sodium (Protonix) 40 mg DAILYAC PO Last administered on 10/08/16 08:27; Start 10/05/16 at 18:00 Cyclobenzaprine HCl (Flexeril) 10 mg PRN Q6HRS PRN PO MUSCLE SPASMS Last administered on 10/08/16 08:32; Start 10/05/16 at 17:00 Methylprednisolone (Medrol) 8 mg BID PO Last administered on 10/05/16 21:00; Start 10/05/16 at 18:00; Stop 10/05/16 at 21:01; Status DC Methylprednisolone (Medrol) 4 mg BIDPCLD PO Last administered on 10/05/16 17: 23; Start 10/05/16 at 12:30; Stop 10/05/16 at 17:31; Status DC Methylprednisolone (Medrol) 4 mg TIDPC PO Last administered on 10/06/16 17:17 ; Start 10/06/16 at 08:30; Stop 10/06/16 at 17:31; Status DC Methylprednisolone (Medrol) 8 mg QHS PO Last administered on 10/06/16 20:38; Start 10/06/16 at 21:00; Stop 10/06/16 at 21:01; Status DC Methylprednisolone (Medrol) 4 mg QIDAFTMEAL PO Last administered on 10/07/16 20:31; Start 10/07/16 at 09:00; Stop 10/07/16 at 21:01; Status DC Methylprednisolone (Medrol) 4 mg TID PO Last administered on 10/08/16 08:26; Start 10/08/16 at 09:00; Stop 10/08/16 at 21:01 Methylprednisolone (Medrol) 4 mg BID PO ; Start 10/09/16 at 09:00; Stop at 21:01 Methylprednisolone (Medrol) 4 mg DAILY PO ; Start 10/10/16 at 09:00; Stop at 09:01 Lidocaine (Lidoderm) 1 patch DAILY TD Last administered on 10/08/16 08:34; Start 10/06/16 at 09:00 Acetaminophen/ Butalbital/ Caffeine (Fioricet) 2 tab PRN Q6HRS PRN PO MIGRAINE HEADACHE; Start 10/05/16 at 17:00 Docusate Sodium (Colace) 100 mg DAILY PO Last administered on 10/08/16 08:26; Start 10/07/16 at 14:00 Polyethylene Glycol (miraLAX PACKET) 17 gm 1X ONCE PO Last administered on 14:50; Start 10/07/16 at 14:30; Stop 10/07/16 at 14:31; Status DC Polyethylene Glycol (miraLAX PACKET) 17 gm DAILY PO ; Start 10/08/16 at 09:00 Magnesium Hydroxide (Milk Of Magnesia) 2,400 mg PRN DAILY PRN PO CONSTIPATION Last administered on 10/08/16 08:33; Start 10/07/16 at 14:00 Active Scripts Active Reported Fish Oil 1,000 mg Softgel ([place]-3/Dha/Epa/Fish Oil) 1,000 Mg Capsule 1,000 Mg PO Vitamin D (Cholecalciferol (Vitamin D3)) 50,000 Unit Capsule 50,000 Unit PO WEEKLY Levothyroxine Sodium 100 Mcg Tablet 1 Tab PO DAILY Lisinopril 10 Mg Tablet 1 Tab PO DAILY Vitals/I & O Vital Sign - Last 24 Hours 10/07/16 10/07/16 10/07/16 10/07/16 11:58 15:00 19:47 20:00 Temp 99.0 98.7 98.1 99.0 98.7 98.1 Pulse 65 65 70 Resp 18 18 16 B/P (MAP) 139/70 (93) 127/69 (88) 124/72 (89) Pulse Ox 95 93 93 O2 Delivery Room Air Room Air Room Air Room Air 10/07/16 10/07/16 10/07/16 10/08/16 20:29 21:29 22:52 03:00 Temp 97.7 97.7 97.7 97.7 Pulse 62 64 Resp 20 20 12 20 B/P (MAP) 146/69 (94) 174/95 (121) Pulse Ox 94 96 O2 Delivery Room Air Room Air Room Air 10/08/16 10/08/16 10/08/16 10/08/16 07:00 08:26 08:32 09:35 Temp 98.8 98.8 Pulse 77 64 Resp 18 B/P (MAP) 178/94 (122) 174/95 Pulse Ox 96 96 96 O2 Delivery Room Air Room Air Room Air Intake and Output 10/07/16 10/07/16 10/08/16 15:00 23:00 07:00 Intake Total 0 ml Output Total 2 ml Balance -2 ml OPAL DAVIS MD Oct 08, 2016 10:10
[2016-10-08] MEDS ORDERED: MAGNESIUM HYDROXIDE 2,400 MG/30 ML ORAL.SUSP. PO PRN (10:30)
[2016-10-08] MEDS: SENNOSIDES/DOCUSATE 8.6/50MG TABLET. PO SCH ×2 (10:30→21:35)
[2016-10-08 11:00] VITALS: BP 138/75
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
[2016-10-08 15:00] VITALS: BP 129/76
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
[2016-10-08] MEDS: oxyCODONE/APAP 5/325 1 TAB TABLET PO PRN (17:42)
[2016-10-08 19:48] VITALS: BP 144/85
[2016-10-08 23:30] VITALS: BP 148/82
[2016-10-09 03:59] VITALS: BP 146/85
[2016-10-09] MEDS: LEVOTHYROXINE 100 MCG TABLET PO SCH (06:15)
[2016-10-09] MEDS: PANTOPRAZOLE 40 MG TABLET.DR. PO SCH (06:15)
[2016-10-09 07:00] VITALS: BP 176/91
[2016-10-09 07:02] LABS: BASO % 0 % (0-3); EOS % 1 % (0-3); HEMATOCRIT 37.3 % (36.0-47.0); HEMOGLOBIN 12.5 g/dL (12.0-15.5); LYMPH # 3.5 x10^3/uL (1.0-4.8); LYMPH % 29 % (24-48); MEAN CORPUSCULAR HEMOGLOBIN 29 pg (25-35); MEAN CORPUSCULAR HGB CONC 33 g/dL (31-37); MEAN CORPUSCULAR VOLUME 88 fL (79-100); MONO % 4 % (0-9); NEUT % 65 % (31-73); PLATELET COUNT 304 x10^3/uL (140-400); RED BLOOD COUNT 4.25 x10^6/uL (3.50-5.40); RED CELL DISTRIBUTION WIDTH 14.1 % (11.5-14.5)
[2016-10-09 07:31] LABS: CALCIUM 8.5 mg/dL (8.5-10.1); CREATININE 0.8 mg/dL (0.6-1.0); POTASSIUM 4.1 mmol/L (3.5-5.1)
--- NOTE | 2016-10-09 08:09 | PDOC ---
PROGRESS NOTES Subjective Subjective No new complaints. Objective Objective Vital Signs Date Time Temp Pulse Resp B/P (MAP) Pulse Ox O2 Delivery O2 Flow Rate FiO2 10/09/16 07:25 Room Air 10/09/16 03:59 97.7 61 18 146/85 (105) 96 97.7 Intake and Output 10/09/16 07:00 Intake Total 350 ml Balance 350 ml Intake Oral 350 ml # Voids 4 Physical Exam Physical Exam She is feeling better and remains independent with mobility and self care. Assessment Assessment Problems Medical Problems: (1) Intractable back pain Status: Acute Plan Plan of Prison today. Comment Review of Relevant I have reviewed the following items estefani (where applicable) has been applied. Labs Laboratory Tests Test 10/09/16 06:20 White Blood Count 12.0 x10^3/uL (4.0-11.0) Red Blood Count 4.25 x10^6/uL (3.50-5.40) Hemoglobin 12.5 g/dL (12.0-15.5) Hematocrit 37.3 % (36.0-47.0) Mean Corpuscular Volume 88 fL (79-100) Mean Corpuscular Hemoglobin 29 pg (25-35) Mean Corpuscular Hemoglobin Concent 33 g/dL (31-37) Red Cell Distribution Width 14.1 % (11.5-14.5) Platelet Count 304 x10^3/uL (140-400) Neutrophils (%) (Auto) 65 % (31-73) Lymphocytes (%) (Auto) 29 % (24-48) Monocytes (%) (Auto) 4 % (0-9) Eosinophils (%) (Auto) 1 % (0-3) Basophils (%) (Auto) 0 % (0-3) Neutrophils # (Auto) 7.8 x10^3uL (1.8-7.7) Lymphocytes # (Auto) 3.5 x10^3/uL (1.0-4.8) Monocytes # (Auto) 0.5 x10^3/uL (0.0-1.1) Eosinophils # (Auto) 0.1 x10^3/uL (0.0-0.7) Basophils # (Auto) 0.0 x10^3/uL (0.0-0.2) Sodium Level 143 mmol/L (136-145) Potassium Level 4.1 mmol/L (3.5-5.1) Chloride Level 105 mmol/L (98-107) Carbon Dioxide Level 29 mmol/L (21-32) Anion Gap 9 (6-14) Blood Urea Nitrogen 18 mg/dL (7-20) Creatinine 0.8 mg/dL (0.6-1.0) Estimated GFR (Cockcroft-Gault) 75.0 Glucose Level 81 mg/dL (70-99) Calcium Level 8.5 mg/dL (8.5-10.1) Laboratory Tests Test 10/09/16 06:20 White Blood Count 12.0 x10^3/uL (4.0-11.0) Red Blood Count 4.25 x10^6/uL (3.50-5.40) Hemoglobin 12.5 g/dL (12.0-15.5) Hematocrit 37.3 % (36.0-47.0) Mean Corpuscular Volume 88 fL (79-100) Mean Corpuscular Hemoglobin 29 pg (25-35) Mean Corpuscular Hemoglobin Concent 33 g/dL (31-37) Red Cell Distribution Width 14.1 % (11.5-14.5) Platelet Count 304 x10^3/uL (140-400) Neutrophils (%) (Auto) 65 % (31-73) Lymphocytes (%) (Auto) 29 % (24-48) Monocytes (%) (Auto) 4 % (0-9) Eosinophils (%) (Auto) 1 % (0-3) Basophils (%) (Auto) 0 % (0-3) Neutrophils # (Auto) 7.8 x10^3uL (1.8-7.7) Lymphocytes # (Auto) 3.5 x10^3/uL (1.0-4.8) Monocytes # (Auto) 0.5 x10^3/uL (0.0-1.1) Eosinophils # (Auto) 0.1 x10^3/uL (0.0-0.7) Basophils # (Auto) 0.0 x10^3/uL (0.0-0.2) Sodium Level 143 mmol/L (136-145) Potassium Level 4.1 mmol/L (3.5-5.1) Chloride Level 105 mmol/L (98-107) Carbon Dioxide Level 29 mmol/L (21-32) Anion Gap 9 (6-14) Blood Urea Nitrogen 18 mg/dL (7-20) Creatinine 0.8 mg/dL (0.6-1.0) Estimated GFR (Cockcroft-Gault) 75.0 Glucose Level 81 mg/dL (70-99) Calcium Level 8.5 mg/dL (8.5-10.1) Medications Current Medications Hydromorphone HCl (Dilaudid) 1 mg PRN Q15MIN PRN IV/SQ PAIN GREATER THAN 3/10 Last administered on 10/05/16 11:30; Start 10/05/16 at 08:30; Stop 10/05/16 at 16:55; Status DC Sodium Chloride 1,000 ml @ 1,000 mls/hr Q1H IV Last administered on 10/05/16 08:48; Start 10/05/16 at 09:00; Stop 10/05/16 at 09:59; Status DC Sodium Chloride (Normal Saline Flush) 10 ml QSHIFT PRN IV AFTER MEDS AND BLOOD DRAWS Last administered on 10/05/16 13:19; Start 10/05/16 at 08:30 Diazepam (Valium) 5 mg 1X ONCE IV Last administered on 10/05/16 08:50; Start 10/05/16 at 09:00; Stop 10/05/16 at 09:01; Status DC Ketorolac Tromethamine (Toradol) 30 mg 1X ONCE IV Last administered on 08:49; Start 10/05/16 at 09:00; Stop 10/05/16 at 09:01; Status DC Ondansetron HCl (Zofran) 4 mg PRN Q8HRS PRN IV NAUSEA/VOMITING; Start 10/05/16 at 11:30; Stop 10/06/16 at 11:29; Status DC Morphine Sulfate 4 mg PRN Q2HR PRN IV PAIN; Start 10/05/16 at 11:30; Stop 10/05 at 16:55; Status DC Sodium Chloride 1,000 ml @ 125 mls/hr Q8H IV Last administered on 10/06/16 05 :03; Start 10/05/16 at 11:18; Stop 10/06/16 at 11:17; Status DC Acetaminophen (Tylenol) 650 mg PRN Q4HRS PRN PO FEVER; Start 10/05/16 at 11:30 ; Stop 10/06/16 at 11:29; Status DC Levothyroxine Sodium (Synthroid) 100 mcg DAILY07 PO Last administered on 06:15; Start 10/06/16 at 07:00 Lisinopril (Prinivil) 10 mg DAILY PO Last administered on 10/08/16 08:26; Start 10/06/16 at 09:00 Acetaminophen/ Hydrocodone Bitart (Lortab 10/325) 1 tab PRN Q6HRS PRN PO PAIN Last administered on 10/08/16 08:32; Start 10/05/16 at 17:00; Stop 10/08/16 at 10:19; Status DC Pantoprazole Sodium (Protonix) 40 mg DAILYAC PO Last administered on 10/09/16 06:15; Start 10/05/16 at 18:00 Cyclobenzaprine HCl (Flexeril) 10 mg PRN Q6HRS PRN PO MUSCLE SPASMS Last administered on 10/08/16 08:32; Start 10/05/16 at 17:00 Methylprednisolone (Medrol) 8 mg BID PO Last administered on 10/05/16 21:00; Start 10/05/16 at 18:00; Stop 10/05/16 at 21:01; Status DC Methylprednisolone (Medrol) 4 mg BIDPCLD PO Last administered on 10/05/16 17: 23; Start 10/05/16 at 12:30; Stop 10/05/16 at 17:31; Status DC Methylprednisolone (Medrol) 4 mg TIDPC PO Last administered on 10/06/16 17:17 ; Start 10/06/16 at 08:30; Stop 10/06/16 at 17:31; Status DC Methylprednisolone (Medrol) 8 mg QHS PO Last administered on 10/06/16 20:38; Start 10/06/16 at 21:00; Stop 10/06/16 at 21:01; Status DC Methylprednisolone (Medrol) 4 mg QIDAFTMEAL PO Last administered on 10/07/16 20:31; Start 10/07/16 at 09:00; Stop 10/07/16 at 21:01; Status DC Methylprednisolone (Medrol) 4 mg TID PO Last administered on 10/08/16 21:35; Start 10/08/16 at 09:00; Stop 10/08/16 at 21:01; Status DC Methylprednisolone (Medrol) 4 mg BID PO ; Start 10/09/16 at 09:00; Stop at 21:01 Methylprednisolone (Medrol) 4 mg DAILY PO ; Start 10/10/16 at 09:00; Stop at 09:01 Lidocaine (Lidoderm) 1 patch DAILY TD Last administered on 10/07/16 08:16; Start 10/06/16 at 09:00 Acetaminophen/ Butalbital/ Caffeine (Fioricet) 2 tab PRN Q6HRS PRN PO MIGRAINE HEADACHE; Start 10/05/16 at 17:00 Docusate Sodium (Colace) 100 mg DAILY PO Last administered on 10/08/16 08:26; Start 10/07/16 at 14:00; Stop 10/08/16 at 15:48; Status DC Polyethylene Glycol (miraLAX PACKET) 17 gm 1X ONCE PO Last administered on 14:50; Start 10/07/16 at 14:30; Stop 10/07/16 at 14:31; Status DC Polyethylene Glycol (miraLAX PACKET) 17 gm DAILY PO ; Start 10/08/16 at 09:00 Magnesium Hydroxide (Milk Of Magnesia) 2,400 mg PRN DAILY PRN PO CONSTIPATION Last administered on 10/08/16 08:33; Start 10/07/16 at 14:00; Stop 10/08/16 at 15:48; Status DC Oxycodone/ Acetaminophen (Percocet 5/325) 1 tab PRN Q4HRS PRN PO PAIN Last administered on 10/08/16 17:42; Start 10/08/16 at 10:30 Senna/Docusate Sodium (Senna Plus) 1 tab BID PO Last administered on 10/08/16 21:35; Start 10/08/16 at 10:30 Docusate Sodium (Colace) 100 mg BID PO Last administered on 10/08/16 21:35; Start 10/08/16 at 10:30 Magnesium Hydroxide (Milk Of Magnesia) 2,400 mg PRN Q12HR PRN PO CONSTIPATION; Start 10/08/16 at 10:30 Active Scripts Active Reported Fish Oil 1,000 mg Softgel ([place]-3/Dha/Epa/Fish Oil) 1,000 Mg Capsule 1,000 Mg PO Vitamin D (Cholecalciferol (Vitamin D3)) 50,000 Unit Capsule 50,000 Unit PO WEEKLY Levothyroxine Sodium 100 Mcg Tablet 1 Tab PO DAILY Lisinopril 10 Mg Tablet 1 Tab PO DAILY Vitals/I & O Vital Sign - Last 24 Hours 10/08/16 10/08/16 10/08/16 10/08/16 08:26 08:32 09:35 11:00 Temp 99.1 99.1 Pulse 64 59 Resp 18 B/P (MAP) 174/95 138/75 (96) Pulse Ox 96 96 96 O2 Delivery Room Air Room Air Room Air 10/08/16 10/08/16 10/08/16 10/08/16 15:00 17:42 18:45 19:48 Temp 97.8 97.7 97.8 97.7 Pulse 61 62 Resp 18 18 B/P (MAP) 129/76 (93) 144/85 (104) Pulse Ox 94 94 94 O2 Delivery Room Air Room Air Room Air Room Air 10/08/16 10/08/16 10/09/16 10/09/16 20:00 23:30 03:59 07:25 Temp 97.3 97.7 97.3 97.7 Pulse 59 61 Resp 18 18 B/P (MAP) 148/82 (104) 146/85 (105) Pulse Ox 94 96 O2 Delivery Room Air Room Air Room Air Room Air Intake and Output 10/08/16 10/08/16 10/09/16 15:00 23:00 07:00 Intake Total 350 ml Balance 350 ml OPAL DAVIS MD Oct 09, 2016 08:09
[2016-10-09] MEDS: SENNOSIDES/DOCUSATE 8.6/50MG TABLET. PO SCH (08:50)
[2016-10-09 08:51] VITALS: BP 176/91
[2016-10-09] MEDS: POLYETHYLENE GLYCOL 3350 17 GM PACKET. PO SCH (08:51)
[2016-10-09] MEDS: DOCUSATE SODIUM 100 MG CAPSULE. PO SCH (08:51)
[2016-10-09] MEDS: LISINOPRIL 10 MG TABLET PO SCH (08:51)
[2016-10-09] MEDS: oxyCODONE/APAP 5/325 1 TAB TABLET PO PRN (08:55)
[2016-10-09] MEDS: LIDOCAINE (700MG/PATCH) PATCH. TD SCH (09:00)
[2016-10-09] MEDS ORDERED: methylPREDNISolone 4 MG TABLET. PO SCH (09:00)
[2016-10-09] MEDS ORDERED: traMADol 50 MG TABLET PO PRN (09:15)
[2016-10-09] MEDS ORDERED: TRAM50TA PO (09:23)
[2016-10-09] MEDS ORDERED: CYCL10TA2 PO (09:23)
[2016-10-09] MEDS ORDERED: LISI10TA2 PO (09:23)
[2016-10-09] MEDS ORDERED: METH4TAB PO (09:23)
[2016-10-09] MEDS ORDERED: HYDR-2758 PO (09:29)
[2016-10-09] MEDS ORDERED: HYDROcodone/APAP 5/325MG 1 TAB TABLET PO PRN (09:30)
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
[2016-10-10] MEDS ORDERED: methylPREDNISolone 4 MG TABLET. PO SCH (09:00)
== END 2016-10-09 15:30 | disposition home or self-care (01) | DRG 563 ==
LOC: ER 08:10 → 4 NORTH 11:19 → OBSVTOIN 10-08 10:55
PROVIDERS: ADMIT Internal Medicine Hematology & Oncology; ATTEND Internal Medicine Hematology & Oncology
DX: S39.012A Strain of muscle, fascia and tendon of lower back, initial encounter (principal); I10 Essential (primary) hypertension; M51.27 Other intervertebral disc displacement, lumbosacral region; E03.9 Hypothyroidism, unspecified; E66.9 Obesity, unspecified; Z68.38 Body mass index [BMI] 38.0-38.9, adult; E78.00 Pure hypercholesterolemia, unspecified; G89.29 Other chronic pain; K59.00 Constipation, unspecified; M47.816 Spondylosis without myelopathy or radiculopathy, lumbar region; M50.30 Other cervical disc degeneration, unspecified cervical region; Z79.890 Hormone replacement therapy; Z82.49 Family history of ischemic heart disease and other diseases of the circulatory system; Z87.891 Personal history of nicotine dependence; E04.9 Nontoxic goiter, unspecified; Z98.51 Tubal ligation status; Z90.89 Acquired absence of other organs; Z88.8 Allergy status to other drugs, medicaments and biological substances; Z91.030 Bee allergy status; Z91.012 Allergy to eggs; Z90.49 Acquired absence of other specified parts of digestive tract; X58.XXXA Exposure to other specified factors, initial encounter; Y93.89 Activity, other specified; Y92.89 Other specified places as the place of occurrence of the external cause; Y99.8 Other external cause status
CPT/HCPCS: 36415; 72148; 80048; 80076; 81001; 85025; 96361; 96374; 96375; G0378; G0379; J1170; J1885; J3360; J7030; J7509; 97116; 97535; 99291-25